=== PATIENT | male | born 1940 | race African-American/Black ===

== ENCOUNTER 2016-08-22 17:42 | Inpatient (IN) | payer MEDICARE ==
--- NOTE | ~2016-08-22 | TOC ---
Unit #: [id number] #: [id number] Patient: JUNIOR VILLARREAL [id number] [address] [address] [id number] I MR#: [id number] NAME: JUNIOR VILLARREAL ROOM: 335 Age: 76 Sex: M Admission Date: 08/22/2016 : 1940 Attending Physician: Damien Herrmann M.D. Primary Care Physician: No Primary Care Physician TRANSFER OF CARE SUMMARY WORKING DIAGNOSES 1. Severe bilateral lower extremity artery occlusion, right greater than left. Planning to have angiogram today. 2. Left lower extremity cellulitis, currently on intravenous antibiotic. Infectious disease is following. 3. Acute kidney injury, improving. Renal ultrasound is unremarkable. Likely prerenal in nature. Nephrology is following. 4. Type 2 diabetes, stable. Accu-Cheks have been between 143 to 204 on current management. 5. Atrial fibrillation. Holding warfarin at this time for ongoing workup. 6. Ischemic cardiomyopathy. Left ventricular ejection fraction is 10% to 15%. Cardiology following. 7. Prior cerebrovascular accident. No residual effects. 8. Essential hypertension. 9. Hyperlipidemia. PROCEDURES Patient will undergo an angiogram of the left foot today. Please refer to the full dictated procedure note for further details. CONSULTANTS 1. Dr. Kunz of cardiology. 2. Dr. Lee of vascular surgery. 3. Dr. Lieberman of infectious disease. 4. Dr. Rai of nephrology. DIAGNOSTIC STUDIES IMAGING: X-ray of foot, 08/22/16, impression - Normal left foot. RENE of the lower extremity, impression - Severe occlusive disease above the ankle on the left with an ankle-brachial index of 0.35 and a toe brachial index of 0.14. Moderately severe occlusive disease above the ankle on the right with an ankle-brachial index of 0.55 and a toe brachial index of 0.46. Chest x-ray on 08/22/16, impression - Stable cardiomegaly. No active disease. Renal ultrasound on 08/23/16, impression -Right renal cyst. Otherwise negative renal ultrasound. Images of the bladder are normal. LABS: Today's labs include BMP - Glucose 207, BUN 24, creatinine 1.5, sodium 134, potassium 4.5, chloride 103, CO2 25, calcium 8.5, magnesium 2. Unit #: [id number] #: [id number] Patient: JUNIOR VILLARREAL CBC - WBC of 6.2, RBC 3.95, hemoglobin 10, hematocrit 32.1, MCV 81.3, MCH 25.4, MCHC 31.3, RDW 14.9, platelets 185, MPV 8.9. CURRENT MICROBIOLOGY: Urine culture with no growth. No eosinophils present. Blood culture - No growth. HOSPITAL COURSE The patient is a pleasant 76-year-old male with past medical history of type 2 diabetes, coronary artery disease, CVA, atrial fibrillation, ischemic cardiomyopathy with left ventricular ejection fraction of 10% to 15% (has an AICD placed), essential hypertension. Was brought to the emergency department due to left lower extremity redness and pain. Patient stated, about 1 1/2 weeks prior to hospitalization, had developed pain and discoloration of his left leg and (1) the 5th toe of his left foot. Had increasing fatigue and on the day of admission had fallen and actually passed out. He was ultimately brought to the emergency department where, on exam, his left foot was discolored. He had no palpable dorsalis pedis on his left foot. The left toe looks to be gangrenous. ABIs were performed in the emergency department, which revealed severe occlusive disease of the left with an RENE of 0.35 and [id number] occlusive disease on the right with an RENE of 0.55. Labs also showed acute kidney injury. Patient was admitted for ischemic gangrenous foot due to arterial occlusive disease. Dr. Lee of vascular surgery was consulted. Dr. Rai of nephrology was consulted for the acute kidney injury. Dr. Kunz was consulted for ischemic cardiomyopathy. Patient was started empirically on antibiotic. The current plan is to undergo an angiogram per vascular surgery's recommendation and continue with IV antibiotic, and infectious disease has been consulted for IV antibiotic management. The rest of the hospitalization will be dictated by ongoing needs. NOTE: Please note that this dictation took 40 minutes to prepare. Dictated by... Melanie Collins PA-C for Judy Cardenas TD: 08/25/2016 11:31 JOB #: [id number] TRANSFER OF CARE SUMMARY Page 1 of 1 X X TRANSFER OF CARE SUMMARY
--- NOTE | ~2016-08-22 | CR126 ---
[facility] A Service of [facility] & [facility] RADIOLOGY TEXT RESULTS PATIENT: JUNIOR VILLARREAL LOCATION: [facility] : 41 UNIT #: [id number] AGE: [address]: Seun Perez DO SEX: M ORDER DR: [id number] [facility] [address] [place], [place] [address] [id number] E MR#: [id number] Acc #: [id number] NAME: JUNIOR VILLARREAL : 1940 SEX: M STUDY DATE/TIME: 08/22/2016 18:54 UNIT: [facility] ROOM: STUDY DESCRIPTION: CR Foot Complete Min 3 View Lt Attending Physician: Seun Perez D.O. Ordering Physician: Seun Perez D.O. Primary Care Physician: No Primary Care Physician MEDICAL IMAGING REPORT This report is preliminary unless electronic signature is present EXAM Left foot. HISTORY Pain, swelling and redness over the past 1-1/2 weeks. Foot injury 1-1/2 weeks ago. TECHNIQUE 3 views of the foot were obtained. FINDINGS The tarsal, metatarsal, and phalangeal elements are all anatomically normal in position and alignment. There are no articular defects. No fractures or radiopaque foreign bodies in the soft tissues are apparent. IMPRESSION Normal left foot. Dictated by... Kalen Lin M.D. THIS IS AN ELECTRONICALLY VERIFIED REPORT Kalen Lin M.D. at 08/22/2016 10:18 PM ANTONIETA/sixto TD: 08/22/2016 20:14 JOB #: [id number] MEDICAL IMAGING REPORT Page 1 of 1 COPY
--- NOTE | ~2016-08-22 | US146 ---
[facility] A Service of [facility] RADIOLOGY TEXT RESULTS PATIENT: JUNIOR VILLARREAL LOCATION: C3A 335-01 : 41 UNIT #: [id number] AGE: [address]: Damien Herrmann MD SEX: M ORDER DR: [id number] [facility] [address] [place], [place] [address] [id number] I MR#: [id number] Acc #: [id number] NAME: JUNIOR VILLARREAL : 1940 SEX: M STUDY DATE/TIME: 08/26/2016 11:50 UNIT: C3A U ROOM: [facility] STUDY DESCRIPTION: US Vein Map Hemodial Access Attending Physician: Damien Herrmann M.D. Ordering Physician: Tomas Chatman M.D. Primary Care Physician: No Primary Care Physician MEDICAL IMAGING REPORT This report is preliminary unless electronic signature is present DATE OF EXAMINATION 08/26/2016 EXAM Bilateral lower extremity vein mapping. CLINICAL HISTORY Ischemic toe, preoperative for bypass. FINDINGS The right great saphenous vein has the following size measurements in millimeters: Upper proximal 5.0, mid 2.3, distal 1.7, at knee 1.0, lower proximal 1.9, mid 2.4, distal 1.4. The small saphenous vein on the right has the following size measurements in millimeters: Proximal 1.7, mid 1.1, distal 1.0. The left great saphenous vein has the following size measurements in millimeters: Upper proximal 2.9, mid 2.4, distal 2.3, at knee 2.4, lower proximal 2.2, mid 1.9, distal 3.0. The small saphenous vein has the following size measurements in millimeters: Proximal 1.0, mid 0.9, distal 0.9. There is no thrombus seen within any of these veins. IMPRESSION 1. The left great saphenous vein appears to be of adequate conduit for possible bypass from the upper proximal portions to the lower distal portion. 2. The right great saphenous vein appears to be a marginal candidate with 2 locations, at the upper distal and lower distal, which are STS. [facility] A Service of [facility] RADIOLOGY TEXT RESULTS PATIENT: JUNIOR VILLARREAL LOCATION: A 335-01 : 42 UNIT #: [id number] AGE: [address]: Damien Herrmann MD SEX: M ORDER DR: less than 2 mm. Dictated by... Shemar Mera M.D. THIS IS AN ELECTRONICALLY VERIFIED REPORT Shemar Mera M.D. at 08/29/2016 2:57 PM CYNTHIA/juan m TD: 08/27/2016 10:11 JOB #: [id number] MEDICAL IMAGING REPORT Page 1 of 1 COPY
--- NOTE | ~2016-08-22 | CO ---
Unit #: [id number] #: [id number] Patient: JUNIOR VILLARREAL [id number] [address] [address] [id number] I MR#: [id number] NAME: JUNIOR VILLARREAL ROOM: 335 Age: 76 Sex: M Admission Date: 08/22/2016 : 1940 Attending Physician: Damien Herrmann M.D. Primary Care Physician: No Primary Care Physician Consultation Date: 08/23/2016 CONSULTATION REPORT REASON FOR CONSULT Renal insufficiency. Thank you very much for having me see this patient in consultation. HISTORY OF PRESENT ILLNESS Mr. Junior Villarreal is a 76-year-old, -Honduran male who presented to the hospital with 1-2 weeks of pain in his left lower leg and foot. He was noted to have probable ischemic toes. He was started on vanc. and Zosyn and was admitted. He was noted upon presentation to have BUN and creatinine of 60 and 2.5 last night and repeat of 52 and 2.1 today. Because of this, I was asked to see the patient. Patient was noted in May of 2015 to have a creatinine range between 0.8 and 1.1. He denies taking any nonsteroidals for pain and denies ever having any kidney problems. He states that mainly just increased swelling and pain in his left foot. He denies any fevers or chills, any cough, any hemoptysis, no chest pain, no shortness of breath, and no urinary symptoms. He did have a bladder scan and postvoid residual was only 65 upon admission last night. PAST MEDICAL HISTORY History of atherosclerotic coronary artery disease, status post stent; history of cardiomyopathy with decreased EF around 30%; history of hyperlipidemia; he is status post AICD; history of hypertension; history of atrial fib.; history of CVA in the past x2 he states with only residual being a little numbness in his right hand; and history of non-insulin dependent diabetes mellitus. ALLERGIES No known drug allergies. SOCIAL HISTORY Previous smoker, previous alcohol abuser; none in over a year for both. MEDICATIONS His medicines at home included: 1. Aspirin. 2. Coreg. 3. Lasix 40 mg twice a day. 4. Glucotrol. 5. Januvia. 6. Prinivil 20 mg b.i.d. 7. Glucophage. 8. Potassium. Unit #: [id number] #: [id number] Patient: JUNIOR VILLARREAL 9. Aldactone. 10. Coumadin. Here, he was started on: 11. Zosyn. 12. Vanc. 13. Florastor. 14. Coreg. 15. Aspirin. 16. IV fluids. FAMILY HISTORY His family history is noncontributory. REVIEW OF SYSTEMS As mentioned in the HPI, denies any other skin rash, except for the redness in his left foot. Again, no other review of systems were positive. PHYSICAL EXAMINATION GENERAL: He is alert. VITAL SIGNS: His temperature is 98.6, pulse 72-103, and blood pressure 105-148/50-70s. HEENT: Normocephalic and atraumatic. Pupils are equal, round, and reactive to light. Extraocular muscles are intact. Hearing appears to be normal. Mouth: Poor dentition, but no erythema. NECK: Supple. No adenopathy. CARDIAC: He appears to have an irregular rhythm without a rub. No S3 or S4. LUNGS: Clear bilaterally. No wheezes, rhonchi, or rales. ABDOMEN: Bowel sounds positive. Nontender and soft. No masses felt. No hepato or organomegaly noted. EXTREMITIES: He has very trace swelling in his left lower extremity, foot, otherwise, and he has some ischemia, darkened toes, on his left foot. Otherwise negative. NEURO: Appears to be intact, motor and sensory grossly. : Deferred. DIAGNOSTIC STUDIES LABORATORY: Data showed a UA: Specific gravity 1.02; 1+ protein, although no proteinuria in 2016; 0-2 RBCs; and 0-2 WBCs. This morning, his sodium is 136, his potassium is down to 4.7 from 5.8 (he did received Kayexalate x1), bicarb is 22, BUN of 53, creatinine 2.1 today, glucose is 147, calcium is 9.1, and albumin is 4.1. CPK is 119. Hemoglobin is 10.5, white count 8300, and platelets are 95,000. ASSESSMENT AND PLAN 1. Acute kidney injury. This gentleman has increased BUN and creatinine probably related to his medications (1) his Aldactone, Prinivil, and Lasix with possible volume depletion causing his acute renal insufficiency. His urine does show some mile proteinuria and we will check a serum protein immunofixation, although no hematuria. Will continue mild hydration, although certainly will watch for overload. Renal ultrasound has been ordered. Will check a random urine protein/creatinine ratio, urine eosinophils, as well as a urine sodium. Will check full electrolytes in the a.m. Certainly, if things worsen or do note continue to improve, will have to consider further workup and treatment. For now, I agree with holding his Aldactone, Lasix, and Prinivil and will re-add them on as clinically indicated. Unit #: [id number] #: [id number] Patient: JUNIOR VILLARREAL 2. Hyperkalemia. Improved secondary to, again, Aldactone, acute renal failure, acidosis and Prinivil. Again, recheck in a.m. 3. Ischemic left foot. Would hold off on arteriogram until renal function improves unless it is an emergency. He is also on some vancomycin for his cellulitis as well as this and, when clinically felt able to change to a nonnephrotoxic drug, I would appreciate it. 4. History of heart disease and decreased EF, status post AICD, history of atrial fib. 5. Non-insulin dependent diabetes mellitus. Certainly agree with stopping his Glucophage for now until his renal function improves. He had a lactic acid level of 1.6 so I doubt if he has any significant lactic acidosis from renal insufficiency with the Glucophage. Dictated by.Samy Rai M.D. SHELDON/uday TD: 08/23/2016 10:22 JOB #: [id number] CONSULTATION REPORT Page 1 of 1 X Justin Rai MD X CONSULTATION REPORT
--- NOTE | ~2016-08-22 | CO ---
Unit #: [id number] #: [id number] Patient: JUNIOR VILLARREAL [id number] [address] [address] [id number] I MR#: [id number] NAME: JUNIOR VILLARREAL ROOM: 335 Age: 76 Sex: M Admission Date: 08/22/2016 : 1940 Attending Physician: Damien Herrmann M.D. Primary Care Physician: No Primary Care Physician Consultation Date: 08/24/2016 CONSULTATION REPORT REASON FOR CONSULTATION Antibiotic management in a patient with left foot ischemia. HISTORY OF PRESENT ILLNESS This is a 76-year-old male who has a history of diabetes and ischemic cardiomyopathy with an ejection fraction of 10% to 15%. The patient reports that he was at home and about a week and a half ago he suffered some trauma to his left foot, mainly involving his fifth toe when he stubbed it. The patient reported that it became increasingly painful, swollen. There was some drainage noted and he began to have some discoloration in his toe with associated pain which brought him to the emergency room. The patient reports he did not take any antibiotics at home. He reports that, overall, he feels like his swelling has greatly improved from his foot and he is no longer having any drainage. Vascular surgery has also been consulted on this patient and they are currently awaiting an angiogram on Sunday. The patient has been placed on vancomycin and Zosyn. ID was asked to evaluate for further antibiotic management. PAST MEDICAL HISTORY Includes: 1. Ischemic cardiomyopathy with an ejection fraction of 10% to 15%, status post AICD placement. 2. Hypertension. 3. Hyperlipidemia. 4. Diabetes. 5. CVA x2. ALLERGIES No known allergies. MEDICATIONS The patient is currently on vancomycin and Zosyn. For other medications, please refer to patient's MAR. SOCIAL HISTORY The patient lives with others. He has positive tobacco abuse but reports none recently. He denies any alcohol currently. He denies any current drug use. REVIEW OF SYSTEMS The patient denies to me any fevers, chills, nausea, vomiting, diarrhea. He denies to me any chest pain or shortness of breath. He does report some pain in his left foot. However, it is improving. He denies any Unit #: [id number] #: [id number] Patient: JUNIOR VILLARREAL current drainage. PHYSICAL EXAMINATION VITAL SIGNS: Temperature is 97.6, pulse is 73, blood pressure is 135/62 and respiratory rate is 20. GENERAL: This is a no apparent distress male sitting in the bed comfortably. HEENT/NECK: His pupils are equal. His neck is supple. CARDIOVASCULAR: S1, S2. Regular rate and rhythm. PULMONARY: Clear to auscultation bilaterally with no wheezes or rhonchi noted. ABDOMEN: Positive bowel sounds. Soft and nontender. EXTREMITIES: Left lower extremity reveals fifth toe with some distal necrosis. His foot is cool to touch. There is some wrinkling of the skin. There is no warmth noted. It is cool to touch. There is no obvious drainage but appears to have some old drainage noted around both fourth and fifth toe. The patient does have malodorous drainage present. DIAGNOSTIC STUDIES LABORATORY: BUN 30, creatinine 1.6, with a creatinine of 2.5 on admission. Sodium 136, potassium 4.2, chloride 104, CO2 25, bilirubin 1.0, AST 44, ALT 23, CK 117, lactic acid 1.6, INR 1.2. White blood cell count 7.4 which is improved from 10 on admission. Hemoglobin 9.9, hematocrit 31.7, platelets 192. Urinalysis is unremarkable. MICROBIOLOGY: Urine for eosinophils is pending. Urine culture is negative. Blood cultures are negative. IMAGING: Bilateral renal ultrasound shows right renal cyst, otherwise negative renal ultrasound. Chest x-ray - no active disease. Foot film shows normal left foot. IMPRESSION This is a 76-year-old diabetic male with ischemic cardiomyopathy status post trauma to his left fifth toe approximately one to two weeks ago. The patient had increasing pain, swelling and malodorous drainage. The patient did not have any fever but now is noted to have a cool foot and ischemia. The patient's ABIs have been done by the vascular surgery team who plan to take him for an angiogram on Sunday. The patient, at this time, does not have any severe obvious cellulitis but can't exclude fifth toe infection or osteomyelitis. At this time, would recommend to continue vancomycin and Zosyn but will need to follow patient's creatinine very closely. The patient does not have any evidence of bacteremia and further workup may be warranted pending vascular surgery's results from their tests on Sunday. Will also check a CRP and sed rate with the next blood draw. Patient does not appear septic or toxic at this time. Thank you for allowing us to participate in the care of this patient and further recommendations to follow pending patient's clinical course. This case will be discussed with Dr. Ismael Lieberman who will evaluate this Unit #: [id number] #: [id number] Patient: JUNIOR VILLARREAL patient as well today. Dictated by... Aileen Rabago, Lon.P.R.N. for Ismael Lieberman M.D. MATTHEW/yazan TD: 08/24/2016 09:24 JOB #: [id number] CONSULTATION REPORT Page 1 of 1 X X CONSULTATION REPORT
--- NOTE | ~2016-08-22 | A ---
[facility] Nutrition Therapy DATE: 08/23/16 Patient: JUNIOR VILLARREAL Physician: BONITA Address: [address] [place] [address] Room/Bed: [address] [place] [address], Zip: [place] [address] Admit Date: 08/22/16 Date of : 41 Height: 6 0 Weight: 230 104.32 NUTRITIONAL ASSESSMENT: REASON: ONE NUTRITION RISK PT RE: PRESSURE ULCER/NON-HEALING WOUND PT IS 76 Y.O. MALE ADMITTED FOR ISCHEMIC, LEFT LEG, KLEBER PMH: CVA X 2, CHF, HTN, FL, CAD, DM, A-FIB, HLD Anthropometrics: 6'0" (PER RD OBSERVATION), WT: 230# (PER PT) (105 KG), BMI: 31.2 Labs: GLU: 147, BUN: 52, CREAT: 2.1, GFR: 34.6 Meds: NACL, NOVOLOG, ZOFRAN I/O & Bowel function: 859/200 Skin Integrity: (L) FOOT WOUND ((L) SMALL TOE WOUND?) EDEMA: (L) FOOT TRACE EDEMA Estimated Nutrition Needs: INCREASED PROTEIN NEEDS 2' SKIN BREAKDOWN Assessment: CHART REVIEWED AND EVENTS NOTED. PT SEEN FOR NUTRITION RISK PT RE: PRESSURE ULCER/NON-HEALING WOUND. PT REPORTS GOOD PO INTAKE AND APPETITE, NO C/O N/V/D. PT DENIES ANY WEIGHT LOSS AND GAIN. RD PROVIDED WRITTEN AND VERBAL CC+HH DIET EDUCATION. PT DEMONSTRATED UNDERSTANDING OF THE TOPIC. PT REPORTED NO DIET QUESTIONS AT THIS TIME. RD TO REMAIN AVAILABLE. Dx: ALTERED NUTRIENT UTILIZATION R/T PMH AEB NEED FOR THERAPEUTIC DIET ORDER. -INCREASED PROTEIN NEEDS R/T DX AEB SKIN BREAKDOWN NOTED. Intervention: 1. CC+HH DIET 2. WRITTEN/VERBAL CC+HH DIET EDUCATION Monitoring, Evaluation and Goals: 1. ORAL INTAKE; CONSUME >50% OF MEALS W/NO C/O N/V/D 2. WEIGHTS; PROMOTE GRADUAL WEIGHT LOSS 3. LABS; WNL 4. SKIN; PROMOTE SKIN HEALING MONITOR: -PO INTAKE/APPETITE -WEIGHTS -EDUCATION NEEDS [facility] Nutrition Therapy DATE: 08/23/16 Patient: JUNIOR VILLARREAL Physician: BONITA Address: [address] [place] [address] Room/Bed: [address] [place] [address], Zip: [place] [address] Admit Date: 08/22/16 Date of : 41 Height: 6 0 Weight: 230 104.32 Recommendations: 1. ENCOURAGE COMPLIANCE OF CURRENT DIET ORDER ABOVE 2. ADD MVI W/MINERAL DAILY + 100-200 MG VITAMIN C DAILY TO PROMOTE SKIN HEALING RD WILL F/U PER PROTOCOL PT IS MILDLY COMPROMISED Respectfully, TAMELA BAUTISTA MS, RD, LD Food and Nutritional Services [facility] cc: client file
--- NOTE | ~2016-08-22 | EKG ---
PATIENT: JUNIOR VILLARREAL UNIT #: [id number] Ventricular Rate: 38 BPM Atrial Rate: 250 BPM QRS Duration: 162 ms Q-T Interval: 472 ms QTC Calculation(Bezet): 375 ms Calculated R Murray: -86 degrees Calculated T Murray: -43 degrees Diagnosis Line: Electronic ventricular pacemaker Leftward axis Diagnosis Line: Atrial fibrillation Diagnosis Line: Diagnosis Line: Confirmed by HOSSEIN ZHONG MD ([id number]) on 08/24/2016 Diagnosis Line: 10:31:58 AM INTERPRETING MD: TREVIN SÁNCHEZ
--- NOTE | ~2016-08-22 | CO ---
Unit #: [id number] #: [id number] Patient: JUNIOR VILLARREAL [id number] [address] [address] [id number] I MR#: [id number] NAME: JUNIOR VILLARREAL ROOM: [facility] Age: 76 Sex: M Admission Date: 08/22/2016 : 1940 Attending Physician: Damein Herrmann M.D. Primary Care Physician: No Primary Care Physician Consultation Date: 08/23/2016 CONSULTATION REPORT REASON FOR CONSULT Left ischemic foot pain and swelling. HISTORY OF PRESENT ILLNESS Mr. Villarreal is a 76-year-old -Citizen Of [place] male who is complaining of left leg and foot pain with swelling for one and a half weeks. He has been experiencing increasing fatigue and leg pain and fell, which ultimately brought him to the emergency room. His left toe he apparently stubbed about a week ago which has increasingly become malodorous with purulent drainage. He started to have discoloration and increased pain of his left foot which ultimately brought him to the emergency room. PAST MEDICAL HISTORY 1. Ischemic cardiomyopathy with his last ejection fraction 10 to 15% last year on echocardiogram. He has a history of an AICD placement. In 2011, the patient was noted to have an atrial appendage clot. He has been anticoagulated. He has a history of atrial fibrillation and flutter. 2. Hypertension. 3. Hyperlipidemia. 4. Adult onset of diabetes. 5. Cerebrovascular accident x2. SOCIAL HISTORY He lives with his and extended family. He has a 100-pack year smoking history but has recently stopped smoking. He denies that he does not drink alcohol. However, he states that he had a bout with alcoholism in the past. He denies illicit drug use. FAMILY HISTORY He has a family history of coronary artery disease. He denies stroke or any other medical problems. ALLERGIES He has no known drug allergies. CURRENT HOME MEDICATIONS 1. Aspirin 81 mg daily. 2. Coreg 3.125 mg b.i.d. 3. Lasix 40 mg b.i.d. 4. Glucotrol 10 mg b.i.d. 5. Januvia 50 mg daily. 6. Prinivil 20 mg b.i.d. 7. Glucophage 850 mg t.i.d. Unit #: [id number] #: [id number] Patient: JUNIOR VILLARREAL 8. Potassium 20 mEq daily. 9. Aldactone 12.5 mg daily. 10. Coumadin 7.5 mg daily REVIEW OF SYSTEMS CONSTITUTIONAL: No fevers, chills or sweats. EYES: No recent visual problems. EARS, NOSE, MOUTH, THROAT: No ear pain, nasal congestion, sore throat. RESPIRATORY: No shortness of breath or cough. CARDIOVASCULAR: The patient denies chest pain, palpitations, syncope. GASTROINTESTINAL: The patient denies nausea, vomiting, diarrhea. GENITOURINARY: The patient denies hematuria. HEMATOLOGIC/LYMPHATIC: Negative for bruising, swollen lymph glands. ENDOCRINE: No excessive thirst, excessive hunger. MUSCULOSKELETAL: The patient denies back pain, neck pain, joint pain, muscle pain, decreased range of motion. INTEGUMENTARY: The patient verbalizes a nonhealing left fifth toe wound that is purulent in discharge and malodorous. Otherwise, his right lower extremity is negative for open sores or wounds. NEUROLOGIC: Alert and oriented x3. PSYCHIATRIC: No anxiety, depression or suicidal thoughts or ideations. PHYSICAL EXAMINATION GENERAL APPEARANCE: This is a well-developed, well-nourished, in no acute distress, answers all questions appropriately. VITAL SIGNS: Temperature 98.2. Pulse 68. Respirations 16. O2 sat 97% on room air. Blood pressure 116/70. HEENT: Normocephalic. Pupils equal, round and reactive to light. NECK: Supple, nontender without lymphadenopathy, masses or thyromegaly. No carotid bruits noted. CARDIAC: Regular rate and rhythm. No murmurs. No peripheral edema, cyanosis or pallor. LUNGS: Clear to auscultation bilaterally. ABDOMEN: Positive bowel sounds. Soft, nontender. No distension. No masses or hepatomegaly. MUSCULOSKELETAL: The patient moves all extremities, full range of motion. No muscular development upper extremities. No deformity noted. No edema. Lower extremities: No deformity noted. No edema. However, left fifth toe wound with purulent drainage and malodorous between fourth and fifth toes. Vascular palpable radial pulses bilaterally. Femoral pulses on the right is a 1+ femoral. On the left, is a very weak palpable femoral pulse. On the left, popliteal pulse is monophasic in nature. Right popliteal is nonpalpable. Left dorsalis pedis and posterior tibial pulse signals are nonpalpable and no signal obtained via Doppler. On the right, the dorsalis pedis and posterior tibialis pulse signals are present. INTEGUMENTARY: Warm and dry. There is an open sore between the fourth and fifth digit of his left foot. There is no hemosiderin disposition. NEUROLOGIC: Cranial nerves II-XII are grossly intact. Normal strength and sensation bilaterally. PSYCHIATRIC: Oriented to person, place and time. The patient demonstrates good judgment and reason. DIAGNOSTIC STUDIES LABORATORY: Glucose 147, BUN 52, creatinine 2.1, EGFR 34.6, sodium 136, potassium 4.7, chloride 106, CO2 22. PT 13.3, INR 1.3, PTT 28.4. WBC count 8.3, hemoglobin 10.5, hematocrit 33.7, platelets 195. IMAGING: ABIs performed show severe occlusive disease on the left with an Unit #: [id number] #: [id number] Patient: JUNIOR VILLARREAL RENE of 0.35 and moderate to ischemic occlusive disease on the right with an RENE of 0.55. On the right, toe pressure is 0.46 and, on the left, the toe pressure is 0.14. ASSESSMENT Left lower extremity ischemia with peripheral arterial disease. PLAN There are ABIs on the chart which are indicative of severe ischemia to his bilateral lower extremities. On the left, there is an indiction that he would not be able to heal the toe wound that is between his fourth and fifth toe due to a very low toe pressure of 0.14. It is recommended that he is to have an arteriogram of his bilateral lower extremities with CO2 on Sunday with Dr. Mera. We will not use any dye in this case due to his acute kidney injury. For this reason, we have chose to do the CO2. We will also pre-hydrate him prior to that procedure just for added benefit of his acute kidney injury. This plan was discussed and review with Dr. Mera in detail and he agrees with the plan. Should you have any questions, comments or concerns, please feel free to give our office a call at [phone]. Thank you for allowing us to participate in this patient's care. Dictated by... Carey Bolden APRN for Shemar Mera M.D. Prisca TD: 08/24/2016 06:25 JOB #: [id number] CONSULTATION REPORT Page 1 of 1 X X CONSULTATION REPORT
--- NOTE | ~2016-08-22 | CO ---
Unit #: [id number] #: [id number] Patient: JUNIOR VILLARREAL [id number] [address] [address] [id number] I MR#: [id number] NAME: JUNIOR VILLARREAL ROOM: 335 Age: 76 Sex: M Admission Date: 08/22/2016 : 1940 Attending Physician: Damien Herrmann M.D. Primary Care Physician: No Primary Care Physician Consultation Date: 08/23/2016 CONSULTATION REPORT REASON FOR CONSULTATION Cardiovascular management and congestive heart failure. HISTORY OF PRESENT ILLNESS This is a 76-year-old -[place] male well known to Dr. Kunz with a past medical history of chronic systolic congestive heart failure, recurrent atrial flutter and coronary artery disease. The patient had a cardiac catheterization March 2013, which revealed an occluded diagonal. There was a total chronic occlusion of the right coronary artery. Mid left circumflex with 60% to 70%. Additional past medical history includes hypertension, hyperlipidemia, diabetes mellitus type 2, alcohol and reformed tobacco abuse. The patient was previously admitted to [facility] in May 2015, for acute on chronic systolic congestive heart failure. 2D echocardiogram at that time revealed ejection fraction 10% to 15% with mild to moderate mitral regurgitation and mild pulmonary hypertension. He presented to the hospital on 08/22/2016 with complaints of a fall. The patient states that he lost his balance and fell yesterday. He denies dizziness prior to the fall. There are no reports of palpitations, chest pain or shortness of breath. He came to the emergency department for treatment of the fall. He also has a left foot wound but has been ongoing prior to the fall yesterday. He denies a fever or chills. There are no reports of shortness of breath, PND, orthopnea or lower extremity edema. He states that he has been compliant with medications. He has been told to follow fluid restriction and nods his head that he does follow these instructions. He is somewhat sleepy during the exam and interview but is able to give a history with stimulation. He was admitted to the emergency department for a fall and left foot ischemia. The wound nurse was consulted. He was started on Zosyn and vancomycin as well as normal saline. Initial labs revealed an elevated potassium of 5.8. Creatinine was 2.5. The last time the patient was admitted his creatinine was around 0.9 to 1.1. He was given Kayexalate and nephrology was consulted. X-ray of the left foot revealed no acute findings. EKG revealed atrial flutter with a left axis deviation and poor R waves. Cardiology was consulted for cardiovascular management. PAST MEDICAL HISTORY 1. Previous admission to [facility] May 12 through May 18, 2015, for acute on chronic systolic congestive heart failure. 2. Ischemic cardiomyopathy. Biventricular AICD implanted by Dr. Vásquez in 2015. Unit #: [id number] #: [id number] Patient: JUNIOR VILLARREAL 3. 2D echocardiogram 05/13/15 revealed an ejection fraction of 10% to 15%. Large anterior apical akinesis. LV moderately dilated. RV small to moderately dilated. Mild to moderate mitral regurgitation. Mild tricuspid regurgitation. Right ventricular systolic pressure 30 to 40 mmHg. 4. Repeat 2D echocardiogram 08/10/2015 revealed an ejection fraction of 15% to 20% with mildly enlarged right atrium, mildly dilated right ventricle, mild aortic regurgitation, mild to moderate mitral regurgitation and tricuspid regurgitation. RVSP normal. No pericardial effusion. 5. Coronary artery disease, status post cardiac catheterization March 2013, revealed left main 30%, occluded diagonal. Total chronic occlusion of the right coronary artery. The left circumflex 60% to 70%. 6. Possible left atrial appendage thrombus in 2011. 7. Hypertension. 8. Hyperlipidemia. 9. Diabetes mellitus type 2. 10. Recurrent atrial flutter. 11. History of alcohol abuse. 12. Reformed tobacco abuse. PAST SURGICAL HISTORY 1. Cardiac catheterization. 2. Right ventricular AICD in 2015. HOME MEDICATIONS 1. Aspirin 81 mg p.o. daily. 2. Coreg 3.125 mg p.o. b.i.d. 3. Furosemide 40 mg p.o. b.i.d. 4. Glipizide 10 mg p.o. b.i.d. 5. Januvia 50 mg p.o. daily. 6. Prinivil 20 mg p.o. b.i.d. 7. Glucophage 850 mg p.o. three times daily. 8. Potassium chloride 20 mEq p.o. daily. 9. Spironolactone 12.5 mg p.o. daily. 10. Coumadin 7.5 mg p.o. daily. ALLERGIES No known drug allergies. SOCIAL HISTORY The patient is a reformed smoker. He has a history of alcohol abuse but none currently. He denies illicit drug use. FAMILY HISTORY Unchanged from previous consultation. REVIEW OF SYSTEMS Ten point review of systems negative except for details noted above in HPI. PHYSICAL EXAMINATION VITAL SIGNS: Temperature 98.6, pulse 72, blood pressure 105/57. CONSTITUTIONAL: This is a 76-year-old -[place] male in no acute distress. SKIN: Warm and dry. NECK: Supple. No jugular vein distention. No hepatojugular reflux. Unit #: [id number] #: [id number] Patient: JUNIOR VILLARREAL Normal carotid upstrokes. No carotid bruits auscultated. HEART: S1 and S2. Irregularly irregular. No murmurs, rubs or gallops. LUNGS: Bilateral breath sounds have good air entry throughout all lung biggs. Respirations even and unlabored. No rubs, rhonchi or wheezes. ABDOMEN: Soft, nontender, nondistended. Positive bowel sounds auscultated x4 quadrants. No ascites noted. EXTREMITIES: Bilateral extremities have no pretibial pitting edema. DP and PT pulses 2+. Capillary refill greater than three seconds on the left. Ischemic toes noted on the left. DIAGNOSTIC STUDIES LABORATORY: White blood cell count 8.3, hemoglobin 10.5, hematocrit 33.7, platelets 195, sodium 136, potassium 4.7, chloride 106, CO2 22, BUN 52, creatinine 2.1. Creatinine in 2016 0.9 to 1.1. Glucose 147, AST 17, ALT 17, alkaline phos. 54. Troponin 0.09, 0.09 and 0.10. Hemoglobin A1c 7.5 in September 2015. Lactic acid 1.6, INR 1.3. Urine culture pending. Urinalysis - positive for 1+ protein. IMAGING: Chest x-ray reveals stable cardiomegaly. CARDIOVASCULAR: EKG reveals atrial fibrillation with ventricular paced beats. QTC 375 msec. IMPRESSION 1. Left foot ischemia. 2. Acute renal failure. 3. Hyperkalemia. 4. Ischemic cardiomyopathy with an ejection fraction 10% to 15%. 5. Mild aortic regurgitation. 6. Mild to moderate mitral and tricuspid regurgitation. 7. Chronic systolic congestive heart failure, compensated. History of biventricular automatic implantable cardioverter defibrillator in 2016. 8. Coronary artery disease, per cardiac catheterization March 2013 with total chronic occlusion of the right coronary artery. Medical management. 9. Hypertension. 10. Hyperlipidemia. 11. Diabetes mellitus type 2. 12. History of alcohol abuse. 13. History of reformed tobacco abuse. 14. Status post fall with unsteady gait. PLAN 1. The patient presented to the hospital after sustaining a fall due to unsteady gait. He also had complaints of a left foot injury. 2. He was admitted for left foot ischemia and acute renal failure with hyperkalemia. 3. Cardiology was consulted for cardiovascular management. There is no evidence of congestive heart failure on exam or complaints of chest pain. 4. The patient will be continued on current medications. Unit #: [id number] #: [id number] Patient: JUNIOR VILLARREAL 5. Hemoglobin A1c and fasting lipid profile will be obtained. 6. Daily PT/INR will be ordered as the patient was on Coumadin at home. His INR is subtherapeutic and he will be started on renal dosing of Lovenox. 7. Will consult vascular surgery for left ischemic foot. 8. No BATSHEVA inhibitor or ARB will be prescribed for cardiomyopathy due to acute on chronic kidney disease. Dictated by... Alexandria Knutson APRN for Judy Lugo TD: 08/24/2016 07:23 JOB #: [id number] CONSULTATION REPORT Page 1 of 1 X X CONSULTATION REPORT
--- NOTE | ~2016-08-22 | CR72 ---
[facility] A Service of [facility] RADIOLOGY TEXT RESULTS PATIENT: JUNIOR VILLARREAL LOCATION: [facility] 335-01 : 41 UNIT #: [id number] AGE: [address]: Stephenie Smith MD SEX: M ORDER DR: [id number] [facility] [address] [place], [place] [address] [id number] I MR#: [id number] Acc #: [id number] NAME: JUNIOR VILLARREAL : 1940 SEX: M STUDY DATE/TIME: 08/22/2016 22:31 UNIT: [facility] ROOM: 22471 STUDY DESCRIPTION: CR Chest Single View Portable Attending Physician: Stephenie Smith M.D. Ordering Physician: Stephenie Smith M.D. Primary Care Physician: No Primary Care Physician MEDICAL IMAGING REPORT This report is preliminary unless electronic signature is present EXAM Portable chest. DATE OF EXAM 08/22/2016, at 22:31. INDICATIONS Left foot pain and swelling for 1-1/2 weeks. Ischemic leg. History of hypertension. FINDINGS AP portable chest is compared with 11/29/2015. Cardiomegaly stable. Multipolar pacer is in place. The lungs are clear. There is no pneumothorax. IMPRESSION Stable cardiomegaly. No active disease. Dictated by... Kalen Young Jr., M.D. THIS IS AN ELECTRONICALLY VERIFIED REPORT Kalen Young Jr., M.D. at 08/23/2016 5:54 AM CHERY/sixto TD: 08/22/2016 23:00 JOB #: [id number] MEDICAL IMAGING REPORT Page 1 of 1 COPY
--- NOTE | ~2016-08-22 | US77 ---
[facility] A Service of [facility] & [facility] RADIOLOGY TEXT RESULTS PATIENT: JUNIOR VILLARREAL LOCATION: A 335- : 41 UNIT #: [id number] AGE: [address]: Damien Herrmann MD SEX: M ORDER DR: [id number] [facility] [address] [facility]. [place], [place] [address] [id number] I MR#: [id number] Acc #: [id number] NAME: JUNIOR VILLARREAL : 1940 SEX: M STUDY DATE/TIME: 08/23/2016 7:43 [facility] STUDY DESCRIPTION: US Kidney Bilateral Complete Attending Physician: Damien Herrmann M.D. Ordering Physician: Stephenie Smith M.D. Primary Care Physician: Primary Care Physician No MEDICAL IMAGING REPORT This report is preliminary unless electronic signature is present EXAM Bilateral renal ultrasound 08/23/2016 HISTORY Abnormal renal function tests. Elevated BUN of 60, elevated creatinine of 2.5. Abnormally low GFR of 28.1 on 08/23/2016. Renal obstruction. Diabetes and hypertension. FINDINGS The right kidney measures 9.4 cm while the left kidney measures 10.9 cm in longitudinal dimensions. There is no evidence of hydronephrosis or nephrolithiasis. There is a 1.6 cm cyst on the right kidney. No solid mass lesions are identified. There is normal renal cortical echogenicity. Images of the bladder are normal. IMPRESSION 1. Right renal cyst. Otherwise negative renal ultrasound. 2. Images of the bladder are normal. Dictated by... Eliel Davalos M.D. THIS IS AN ELECTRONICALLY VERIFIED REPORT Eliel Davalos M.D. at 08/29/2016 8:07 AM TIGIST/bari TD: 08/23/2016 09:03 JOB #: [id number] MEDICAL IMAGING REPORT Page 1 of 1 COPY
--- NOTE | ~2016-08-22 | OR ---
Unit #: [id number] #: [id number] Patient: JUNIOR VILLARREAL [id number] [address] [place], [place] [address] [id number] MR#: [id number] NAME: JUNIOR VILLARREAL ROOM: [facility] Date of Procedure: 08/25/2016 Admission Date: 08/22/2016 Surgeon: Shemar Mera M.D. : 1940 Attending Physician: Damien Herrmann M.D. Primary Care Physician: Primary Care Physician No OPERATIVE REPORT PROCEDURES PERFORMED 1. Ultrasound-guided access of right common femoral artery. 2. Moderate sedation. 3. Aortogram with left lower extremity angiogram first order. INDICATIONS FOR PROCEDURE This is a 76-year-old gentleman, who was admitted with some left foot pain, and concern for some scabbed ulcerations over his left fifth toe. He underwent ankle-brachial indices testing, which demonstrated that his right RENE was 0.55, his left RENE was 0.35, with the digital pressure of 20, toe index 0.14. As a result, I had discussed with the patient about doing a left lower extremity angiogram with possible intervention to access his vasculature, and there was no significant stenosis or occlusion, to try to intervene with a balloon or stent to maximize arterial inflow, so as to promote wound healing. I talked to the patient about the risks and benefits of the procedure. The risks include, but not limited to, contrast-induced nephropathy, injury to the blood vessels, access site bleeding, and need for further procedures. The benefit of the procedure would be to evaluate his blood flow, and to see if we can improve it. He expressed understanding, and elected to proceed. PREOPERATIVE DIAGNOSIS Atherosclerosis with ulceration. POSTOPERATIVE DIAGNOSIS Atherosclerosis with ulceration. DESCRIPTION OF PROCEDURE Pre-sedation history and examination revealed ASA physical status of 3; fasting duration of at least 6 hours; family history is negative for any adverse anesthetic or sedative reactions; normal dentition and neck mobility; no contraindication to sedation. The risks, benefits, and alternatives were discussed with the patient. He desired to proceed. With blood pressure, heart rate, and oxygen saturation monitors, constant nursing observation and direct attending supervision, the patient received Versed 1 mg IV, a total of fentanyl 50 mcg IV, given appropriate level of sedation. Total sedation time and [id number] time was 35 minutes. The patient was subsequently observed with serial examinations until return of pre-sedation mental status. The patient remained hemodynamically stable with normal oxygen saturations and vital signs, and no complications during procedure or recovery. Unit #: [id number] #: [id number] Patient: JUNIOR VILLARREAL A time-out procedure was performed. Using the ultrasound, I identified the femoral bifurcation. Using fluoroscopy, I identified the lower third of the femoral head and was marked on the skin. I then injected 1% lidocaine into the skin, and using ultrasound guidance, I accessed the right common femoral artery. I used a 21-gauge micro needle, and advanced the micro Glidewire, and confirmed my position in iliac artery with fluoroscopy. I then attempted to advance the micro-sheath catheter over the wire; however, there was some tortuosity at the femoral head. I made attempts to use the dilator of the 4-Iranian micro-sheath catheter and then the sheath itself, but to no avail. I then attempted to access lower in the femoral head, so I removed the micro-sheath catheter and the wire and held manual pressure over the right common femoral artery. I then used ultrasound, and again accessed the right common femoral artery in a more inferior position. However, the same issue occurred, in terms of mean some tortuosity at the femoral head. Even using a dilator to create the tract, I was unable to advance the 4-Iranian micro-sheath catheter. In my opinion, I felt that the micro Glidewire was just not stiff enough to allow for the tortuosity. I again pulled my micro-sheath catheter and wire and held additional manual pressure over the femoral head. I then used a large single puncture needle for access, rather than a micro needle. I accessed the common femoral artery above the bifurcation with ultrasound guidance. I had obtained pulsatile flow and then advanced a starter wire up into the aorta, confirmed on fluoroscopy. Over this starter wire, I was easily able to advance a 4-Iranian sheath. It was flushed and aspirated easily. I then advanced the Omni Flush catheter up into the aorta. Using CO2 angiography, because of the patient's creatinine of 1.5, GFR less than 60, and some concern from his consultant technology about contrast-induced nephropathy. I obtained initial aortogram. This demonstrated there was no significant aortic disease. The left renal artery appeared patent, the right renal artery appeared more diminutive than the left. There is mild narrowing of the right common iliac and external iliac artery; however, there was no significant disease that was seen. The left common iliac artery appeared patent; however, I did not see any flow of the left external iliac artery beyond the iliac bifurcation. I then brought my pigtail catheter lower down to the aortic bifurcation and performed another hand injection with CO2. I did a right angled oblique view, which again confirmed a left external iliac artery occlusion, with distal reconstitution of the left common femoral artery. At this point, I also want to evaluate his left lower extremity vasculature. I was unable to do so with CO2, because of his left external iliac artery occlusion. As a result, I contacted the consultant technology, who said it was okay to give him a little bit of contrast. I did 4 mL/second for 40 mL total bolus jaclyn using 50:50 mixture contrast. This demonstrated again the left external iliac artery occlusion, with common femoral artery reconstitution. The superficial femoral artery appeared to occlude at the proximal portion. Beyond this, no significant other flow was noted. No flow from the midthigh down; however, was likely due to poor timing of the bolus jaclyn, and not indicative of a lack of flow. At this point, my decision was the patient will likely need a [id number] femoral-femoral bypass, and an additional on-table left lower extremity angiogram to assess for his distal vasculature. My suspicion is that he will likely need a fem below-knee popliteal or even fem tibial bypass. I deployed a 5-Iranian Mynx device for closure and additional manual pressure was held over the right common femoral artery Unit #: [id number] #: [id number] Patient: JUNIOR VILLARREAL for 5 minutes to achieve adequate hemostasis. At the end of the case, all counts were correct and I was present for entire duration of procedure. ESTIMATED BLOOD LOSS 20 mL. FINDINGS 1. Normal aorta, no significant stenosis or occlusion of the right common iliac artery, external iliac artery. 2. No significant occlusion of the left common iliac artery, but occlusion of the left external iliac artery, with distal common femoral reconstitution. 3. Proximal left superficial femoral artery occlusion. SPECIMENS None. COMPLICATIONS None. TECHNIQUE Contrast used was 25 mL, fluoro was 4.4 minutes, sedation time was 35 minutes, lidocaine used was 5 mL. Dictated by... Judy Yusuf TD: 08/26/2016 05:49 JOB #: [id number] OPERATIVE REPORT Page 1 of 1 X X PROCEDURE OPERATIVE NOTE
--- NOTE | ~2016-08-22 | US89 ---
[facility] A Service of [facility] & [facility] RADIOLOGY TEXT RESULTS PATIENT: JUNIOR VILLARREAL LOCATION: [facility] 335-01 : 41 UNIT #: [id number] AGE: [address]: Damien Herrmann MD SEX: M ORDER DR: [id number] [facility] [address]. [place], [place] [address] [id number] I MR#: [id number] #: [id number] NAME: JUNIOR VILLARREAL : 1940 SEX: M STUDY DATE/TIME: 08/22/2016 19:00 UNIT: [address] ROOM: [facility] STUDY DESCRIPTION: US Lower Ext Arterial Exam Attending Physician: Stephenie Smith M.D. Ordering Physician: Seun Perez D.O. MEDICAL IMAGING REPORT This report is preliminary unless electronic signature is present EXAM Ankle-brachial index bilaterally. HISTORY Peripheral vascular disease, claudication with ulcers at the ankles and feet for the past week. TECHNIQUE Ankle-brachial indices were measured bilaterally. FINDINGS On the right side the dorsalis pedis index is 0.55 as is the posterior tibial index with a toe brachial index of 0.46. On the left side the posterior tibial index is 0.32 with a dorsalis pedis index of 0.35 and a toe brachial index of 0.14. Waveform tracings are monophasic and dampened bilaterally particularly on the left. IMPRESSION Severe occlusive disease above the ankle on the left with an ankle-brachial index of 0.35 and a toe brachial index of 0.14. Moderately severe occlusive disease above the ankle on the right with an ankle-brachial index of 0.55 and a toe brachial index of 0.46. STAT * RESULT Dictated by... Kalen Lin M.D. THIS IS AN ELECTRONICALLY VERIFIED REPORT Kalen Lin M.D. at 08/23/2016 6:20 [address] [facility] [facility] A Service of [facility] & [facility] RADIOLOGY TEXT RESULTS PATIENT: JUNIOR VILLARREAL LOCATION: [facility] 335-01 : 41 UNIT #: [id number] AGE: [address]: Damien Herrmann MD SEX: M ORDER DR: ANTONIETA/shahida TD: 08/22/2016 20:02 JOB #: [id number] MEDICAL IMAGING REPORT Page 1 of 1 COPY
--- NOTE | ~2016-08-22 | HP ---
Unit #: [id number] #: [id number] Patient: JUNIOR VILLARREAL [id number] [address] [address] [id number] MR#: [id number] NAME: JUNIOR VILLARREAL ROOM: Age: 76 Sex: M Admission Date: 08/22/2016 : 1940 Attending Physician: Seun Perez D.O. HISTORY AND PHYSICAL CHIEF COMPLAINT Ischemic left leg, acute kidney injury, hyperkalemia. HISTORY OF PRESENT ILLNESS This pleasant 76-year-old male with ischemic cardiomyopathy, status post AICD placement, with atrial fibrillation, hypertension, and AODM, is admitted for ischemic left leg. The patient, one and a half weeks ago, developed pain and discoloration of his left leg, and stubbed the fifth toe of his left foot. He has been experiencing increasing fatigue and today either fell or passed out, I am not sure. He was ultimately brought to this emergency department where he has a discolored left foot. I am unable to palpate pedal pulses. The left toe looks to be gangrenous. ABIs were performed showing severe occlusive disease on the left with an RENE of 0.35 and moderate to severe occlusive disease on the right with an RENE of 0.55. Labs show acute kidney injury. Patient denies difficulty voiding. He states he has been eating and drinking okay. In the ER, patient was treated with Zosyn and vancomycin and currently is receiving IV fluids. A call was also made to a vascular surgeon who will be seeing the patient in the morning. PAST MEDICAL HISTORY 1. Ischemic cardiomyopathy. Last ejection fraction was 10% to 15% last year with mild to moderate MR and mild TR. Patient is status post AICD placement. In 2011, the patient was noted to have an atrial appendage clot. He was anticoagulated. He has a history of atrial fibrillation/flutter. 2. Hypertension. 3. Hyperlipidemia. 4. Adult-onset diabetes mellitus. 5. Cerebrovascular accident x2. ALLERGIES No known drug allergies. HOME MEDICATIONS 1. Aspirin 81 mg daily. 2. Coreg 3.125 mg b.i.d. 3. Lasix 40 mg b.i.d. 4. Glucotrol 10 mg b.i.d. 5. Januvia 50 mg daily. 6. Prinivil 20 mg b.i.d. Unit #: [id number] #: [id number] Patient: JUNIOR VILLARREAL 7. Glucophage 850 mg t.i.d. 8. Potassium 20 mEq daily. 9. Aldactone 12.5 mg daily. 10. Coumadin 7.5 mg daily. FAMILY HISTORY Coronary artery disease. SOCIAL HISTORY The patient lives with his and extended family. He has a 100 pack-year smoking history but stopped smoking. He no longer drinks alcohol although drank heavily in the past. REVIEW OF SYSTEMS Notable for discolored, painful left foot, cardiomyopathy, atrial fibrillation, hypertension, AODM, and previous stroke. All other systems were reviewed and are otherwise negative. PHYSICAL EXAMINATION GENERAL: A pleasant, 76-year-old male currently in no acute distress. VITAL SIGNS: Temperature 97.4, pulse 100, respirations 16, blood pressure 129/74, and O2 saturation is 100% on room air. HEENT: Eyes PERRLA. Extraocular muscles are intact. Pharynx is benign. Poor dentition. NECK: Supple without adenopathy or thyromegaly. CHEST: Clear. CARDIAC: Irregular irregular S1 and S2. ABDOMEN: Bowel sounds are present. No hepatosplenomegaly, tenderness, or masses. EXTREMITIES: Notable for erythema of the left foot. Unable to palpate pedal pulses on the left and there may be a faint pedal pulse on the right. There are gangrenous changes of the left fifth toe and duskiness of the left foot. NEUROLOGIC: Patient is awake and alert. He is oriented. Cranial nerves are intact. He has mild right-sided weakness. DIAGNOSTIC STUDIES ADMISSION LABORATORY: Hematocrit is 36.7 with normal white count and platelet count. INR 1.3 and PTT is 34.2. SMA-12: Glucose 143, BUN 60, creatinine 2.5, up from a BUN of 19 and creatinine of 1.1 last year, potassium 5.8, and CO2 of 21. Troponin 0.1. IMAGING: X-ray of the left foot negative. RENE shows severe occlusive disease on the left 0.35 and right 0.55 consistent with moderate to severe peripheral vascular disease. CARDIOLOGY: EKG shows ventricular paced rhythm, rate 38, and underlying atrial fibrillation. ASSESSMENT 1. Ischemic left leg plus/minus cellulitis. 2. Acute kidney injury with hyperkalemia. 3. Ischemic cardiomyopathy, ejection fraction 10% to 15%, status post automatic implantable cardioverter-defibrillator placement. 4. Adult-onset diabetes mellitus. 5. Hypertension. 6. Atrial fibrillation, anticoagulated, with a subtherapeutic INR. 7. Prior cerebrovascular accident. Unit #: [id number] #: [id number] Patient: JUNIOR VILLARREAL PLANS 1. IV fluids with bicarbonate. One dose of Kayexalate. Will check a urinalysis, postvoid bladder scan, and renal ultrasound. Will likely have Nephrology see in the morning as well. 2. Vascular was consulted, and they will see the patient in the morning. 3. Will consult the patient's cadastral surveyor. 4. Hold diuretics, BATSHEVA inhibitor tonight pending repeat labs in the morning. 5. Sliding scale insulin. 1. Dictated by Stephenie Smith M.D. AML/david TD: 08/22/2016 22:15 JOB #: [id number] CC: Rocio Kunz M.D. HISTORY AND PHYSICAL Page 1 of 1 X Stephenie Smith MD HISTORY AND PHYSICAL
[~2016-08-22 17:42] MED LIST: ALDACTONE PO; ASPIRIN81 M2 PO; COREG12.5 MG PO; COREG3.125 MG PO; COUMADIN7.5 MG; COUMADIN7.5 MG PO; GLIPIZIDE10 MG PO; K-DUR20 ME2 PO; LASIX PO; LOVENOX SUBQ; NORVASC10 MG PO; ZESTRIL5 MG PO
[2016-08-22] MEDS ORDERED: ASPIRIN81 M2 PO (17:48)
[2016-08-22] MEDS ORDERED: GLUCOTROL10 MG PO (17:48)
[2016-08-22] MEDS ORDERED: FUROSEMIDE40 MG PO (17:48)
[2016-08-22] MEDS ORDERED: COREG3.125 MG PO (17:48)
[2016-08-22] MEDS ORDERED: METFORMIN PO (17:49)
[2016-08-22] MEDS ORDERED: JANUVIA50 MG PO (17:49)
[2016-08-22] MEDS ORDERED: PRINIVIL20 M1 PO (17:49)
[2016-08-22] MEDS ORDERED: POTASSIUM CHLO20 ME1 PO (17:50)
[2016-08-22] MEDS ORDERED: KCL PO (17:50)
[2016-08-22] MEDS ORDERED: ALDACTONE25 MG PO (17:51)
[2016-08-22] MEDS ORDERED: COUMADIN PO (17:52)
[2016-08-22 19:28] LABS: BASOPHIL% 0.2 % (0-2.5); EOSINOPHIL# 0.1 X10e3 (0-0.7); EOSINOPHIL% 0.5 % (0.0-7.0); HEMATOCRIT 36.7 % (38.0-50.0); HEMOGLOBIN 11.4 gm/dL (13.0-16.0); LYMPHOCYTE# 1.4 X10e3 (1.0-3.5); LYMPHOCYTE% 13.8 % (17.0-45.0); MEAN CELL VOLUME 82.5 FL (83-96); MEAN CORPUSCULAR HEMOGLOBIN 25.6 PG (28-34); MEAN PLATELET VOLUME 9.9 FL (6.5-11.5); MONOCYTE# 1.2 X10e3 (0-1.0); MONOCYTE% 12.1 % (3.0-12.0); NEUTROPHIL# 7.3 X10e3 (1.5-7.1); NEUTROPHIL% 73.4 % (40-75); PLATELET COUNT 216 X10e3 (140-420); RED BLOOD COUNT 4.44 X10e (3.90-5.60); RED CELL DISTRIBUTION WIDTH 14.9 % (11.0-15.5)
[2016-08-22 19:32] LABS: DIFF IND NO
[2016-08-22 19:34] LABS: INR 1.3; PARTIAL THROMBOPLASTIN TIME 34.2 SECONDS (23.5-31.3); PROTHROMBIN TIME (PATIENT) 13.5 SECONDS (9.6-11.5)
[2016-08-22 19:50] LABS: ALBUMIN SERUM 4.1 g/dL (3.5-5.0); BILIRUBIN, DIRECT 0.1 mg/dL (0.0-0.2); BILIRUBIN,TOTAL 1.1 mg/dL (0.2-2.0); CREATININE SERUM 2.5 mg/dL (0.6-1.4); GLOM FILT RATE Estimated 28.1 mL/min (>60); PROTEIN TOTAL SERUM 8.1 g/dL (6.0-8.3)
[2016-08-22 19:51] LABS: POTASSIUM 5.8 mmol/L (3.5-5.1)
[2016-08-22 20:08] LABS: POC - CKMB 7.1 ng/mL (0.0-7.9); POC - TROPONIN 0.1 ng/mL (<=0.05)
[2016-08-22 22:30] LABS: URINE SOURCE CLEAN CATCH
[2016-08-22 22:44] LABS: URINE APPEARANCE CLEAR; URINE BILIRUBIN NEG (NEG); URINE BLOOD NEG (NEG); URINE COLOR YELLOW; URINE GLUCOSE NEG (NEG); URINE KETONE TRACE (NEG); URINE LEUKOCYTE ESTERASE NEG (NEG); URINE NITRATE NEG (NEG); URINE PH 5.5 (5-8); URINE PROTEIN 1+ (NEG); URINE SPECIFIC GRAVITY 1.021 (1.003-1.035)
[2016-08-22 22:47] LABS: URBCS1 AUWI 0-2 /[HPF] (0-2); URINE BACTERIA AUWI NEG (NEGATIVE); URINE SQUAMOUS EPITHELIAL CELL NONE SEEN /[HPF]; UWBCS1 AUWI 0-2 (0-5)
[2016-08-22 22:52] LABS: CULTURE INDICATED? NO
[2016-08-23 02:46] LABS: BASOPHIL% 0.5 % (0-2.5); EOSINOPHIL# 0.1 X10e3 (0-0.7); EOSINOPHIL% 1.2 % (0.0-7.0); HEMATOCRIT 33.7 % (38.0-50.0); HEMOGLOBIN 10.5 gm/dL (13.0-16.0); LYMPHOCYTE# 1.4 X10e3 (1.0-3.5); LYMPHOCYTE% 16.6 % (17.0-45.0); MEAN CELL VOLUME 81.5 FL (83-96); MEAN CORPUSCULAR HEMOGLOBIN 25.5 PG (28-34); MEAN CORPUSCULAR HGB CONC 31.3 g/dL (30-36); MEAN PLATELET VOLUME 9.2 FL (6.5-11.5); MONOCYTE# 0.9 X10e3 (0-1.0); MONOCYTE% 11.1 % (3.0-12.0); NEUTROPHIL# 5.9 X10e3 (1.5-7.1); NEUTROPHIL% 70.6 % (40-75); PLATELET COUNT 195 X10e3 (140-420); RED BLOOD COUNT 4.13 X10e (3.90-5.60); RED CELL DISTRIBUTION WIDTH 15.2 % (11.0-15.5); WHITE BLOOD COUNT 8.3 X10e3 (4.0-10.5)
[2016-08-23 02:50] LABS: DIFF IND NO
[2016-08-23 03:06] LABS: INR 1.3; PARTIAL THROMBOPLASTIN TIME 28.4 SECONDS (23.5-31.3); PROTHROMBIN TIME (PATIENT) 13.3 SECONDS (9.6-11.5)
[2016-08-23 03:18] LABS: BUN/CREATININE RATIO 24.76; CALCIUM SERUM 9.1 mg/dL (8.4-10.2); CREATININE SERUM 2.1 mg/dL (0.6-1.4); GLOM FILT RATE Estimated 34.6 mL/min (>60); POTASSIUM 4.7 mmol/L (3.5-5.1)
[2016-08-23 03:38] LABS: %MB 3.3 % (0.0-4.0); MB 3.9 ng/ml
[2016-08-23 10:40] LABS: CHOLESTEROL 149 mg/dL (0-200); HDL CHOLESTEROL 30 mg/dL (29-75); LDL CHOLESTEROL 97 mg/dL (-130); LDL/HDL RATIO 3 RATIO (0-4); TRIGLYCERIDES 108 mg/dL (10-160)
[2016-08-23 17:26] LABS: CREATININE,RANDOM URINE 99 mg/dL; SODIUM URINE RANDOM 82 mmol/L; TOTAL PROTEIN,RANDOM URINE 28 mg/dl (<10)
[2016-08-24 07:32] LABS: HEMATOCRIT 31.7 % (38.0-50.0); HEMOGLOBIN 9.9 gm/dL (13.0-16.0); MEAN CELL VOLUME 82.4 FL (83-96); MEAN CORPUSCULAR HEMOGLOBIN 25.6 PG (28-34); MEAN CORPUSCULAR HGB CONC 31.1 g/dL (30-36); MEAN PLATELET VOLUME 9.9 FL (6.5-11.5); RED BLOOD COUNT 3.84 X10e (3.90-5.60); RED CELL DISTRIBUTION WIDTH 14.5 % (11.0-15.5); WHITE BLOOD COUNT 7.4 X10e3 (4.0-10.5)
[2016-08-24 07:52] LABS: INR 1.2; PROTHROMBIN TIME (PATIENT) 12.6 SECONDS (9.6-11.5)
[2016-08-24 08:17] LABS: ALBUMIN SERUM 3.2 g/dL (3.5-5.0); BUN/CREATININE RATIO 18.75; CALCIUM SERUM 8.8 mg/dL (8.4-10.2); CREATININE SERUM 1.6 mg/dL (0.6-1.4); GLOM FILT RATE Estimated 48.2 mL/min (>60); MAGNESIUM 1.6 mg/dL (1.6-3.0); POTASSIUM 4.2 mmol/L (3.5-5.1); PROTEIN TOTAL SERUM 6.4 g/dL (6.0-8.3)
[2016-08-25 02:29] LABS: BASOPHIL# 0.1 X10e3 (0-0.3); BASOPHIL% 0.9 % (0-2.5); EOSINOPHIL# 0.1 X10e3 (0-0.7); EOSINOPHIL% 1.2 % (0.0-7.0); HEMATOCRIT 32.1 % (38.0-50.0); LYMPHOCYTE# 1.1 X10e3 (1.0-3.5); LYMPHOCYTE% 18.3 % (17.0-45.0); MEAN CELL VOLUME 81.3 FL (83-96); MEAN CORPUSCULAR HEMOGLOBIN 25.4 PG (28-34); MEAN CORPUSCULAR HGB CONC 31.3 g/dL (30-36); MEAN PLATELET VOLUME 8.9 FL (6.5-11.5); MONOCYTE# 0.7 X10e3 (0-1.0); MONOCYTE% 11.7 % (3.0-12.0); NEUTROPHIL# 4.2 X10e3 (1.5-7.1); NEUTROPHIL% 67.9 % (40-75); PLATELET COUNT 185 X10e3 (140-420); RED BLOOD COUNT 3.95 X10e (3.90-5.60); RED CELL DISTRIBUTION WIDTH 14.9 % (11.0-15.5); WHITE BLOOD COUNT 6.2 X10e3 (4.0-10.5)
[2016-08-25 02:30] LABS: DIFF IND NO
[2016-08-25 02:40] LABS: INR 1.1; PROTHROMBIN TIME (PATIENT) 11.4 SECONDS (9.6-11.5)
[2016-08-25 03:53] LABS: CALCIUM SERUM 8.5 mg/dL (8.4-10.2); CREATININE SERUM 1.5 mg/dL (0.6-1.4); GLOM FILT RATE Estimated 52.1 mL/min (>60); POTASSIUM 4.5 mmol/L (3.5-5.1)
[2016-08-26 09:47] LABS: HEMOGLOBIN 9.7 gm/dL (13.0-16.0); MEAN CELL VOLUME 81.9 FL (83-96); MEAN CORPUSCULAR HEMOGLOBIN 25.6 PG (28-34); MEAN CORPUSCULAR HGB CONC 31.2 g/dL (30-36); MEAN PLATELET VOLUME 10.1 FL (6.5-11.5); RED BLOOD COUNT 3.78 X10e (3.90-5.60); RED CELL DISTRIBUTION WIDTH 15.1 % (11.0-15.5); WHITE BLOOD COUNT 8.4 X10e3 (4.0-10.5)
[2016-08-26 09:54] LABS: INR 1.1; PROTHROMBIN TIME (PATIENT) 11.5 SECONDS (9.6-11.5)
[2016-08-26 10:03] LABS: BUN/CREATININE RATIO 11.42; CALCIUM SERUM 8.8 mg/dL (8.4-10.2); CREATININE SERUM 1.4 mg/dL (0.6-1.4); GLOM FILT RATE Estimated 56.6 mL/min (>60); MAGNESIUM 1.8 mg/dL (1.6-3.0); PHOSPHOROUS 2.2 mg/dL (2.5-4.6)
[2016-08-27 05:48] LABS: HEMATOCRIT 29.8 % (38.0-50.0); HEMOGLOBIN 9.4 gm/dL (13.0-16.0); MEAN CELL VOLUME 81.7 FL (83-96); MEAN CORPUSCULAR HEMOGLOBIN 25.7 PG (28-34); MEAN CORPUSCULAR HGB CONC 31.5 g/dL (30-36); MEAN PLATELET VOLUME 9.5 FL (6.5-11.5); RED BLOOD COUNT 3.65 X10e (3.90-5.60); RED CELL DISTRIBUTION WIDTH 14.9 % (11.0-15.5); WHITE BLOOD COUNT 8.9 X10e3 (4.0-10.5)
[2016-08-27 06:41] LABS: CALCIUM SERUM 8.7 mg/dL (8.4-10.2); CREATININE SERUM 1.4 mg/dL (0.6-1.4); GLOM FILT RATE Estimated 56.6 mL/min (>60); MAGNESIUM 2.1 mg/dL (1.6-3.0); PHOSPHOROUS 2.5 mg/dL (2.5-4.6); POTASSIUM 4.3 mmol/L (3.5-5.1)
[2016-08-28 07:38] LABS: HEMATOCRIT 28.4 % (38.0-50.0); HEMOGLOBIN 8.9 gm/dL (13.0-16.0); MEAN CELL VOLUME 82.3 FL (83-96); MEAN CORPUSCULAR HEMOGLOBIN 25.9 PG (28-34); MEAN CORPUSCULAR HGB CONC 31.5 g/dL (30-36); MEAN PLATELET VOLUME 9.8 FL (6.5-11.5); RED BLOOD COUNT 3.45 X10e (3.90-5.60); RED CELL DISTRIBUTION WIDTH 14.7 % (11.0-15.5)
[2016-08-28 08:13] LABS: CALCIUM SERUM 8.6 mg/dL (8.4-10.2); CREATININE SERUM 1.2 mg/dL (0.6-1.4); GLOM FILT RATE Estimated 68.2 mL/min (>60); MAGNESIUM 1.8 mg/dL (1.6-3.0); PHOSPHOROUS 3.1 mg/dL (2.5-4.6); POTASSIUM 4.2 mmol/L (3.5-5.1)
== END 2016-08-28 16:17 | DRG 300 ==
LOC: CED 17:42 → CEDOF 21:50 → C3A PCU 21:50 → CED 22:04 → C3A PCU 22:04 → CEDOF 22:04 → C3A PCU 23:53 → CEDOF 23:53 → C3A PCU 08-23 07:22
PROVIDERS: Emergency Medicine; Family Medicine; Internal Medicine; Internal Medicine Nephrology
PROC: B410YZZ Fluoroscopy of Abdominal Aorta using Other Contrast (ICD-10-PCS; principal; 2016-08-25)
PROC: B41GYZZ Fluoroscopy of Left Lower Extremity Arteries using Other Contrast (ICD-10-PCS; 2016-08-25)
DX: I70.245 Atherosclerosis of native arteries of left leg with ulceration of other part of foot (principal); N17.9 Acute kidney failure, unspecified; E11.8 Type 2 diabetes mellitus with unspecified complications; I48.92 Unspecified atrial flutter; I11.0 Hypertensive heart disease with heart failure; I50.22 Chronic systolic (congestive) heart failure; I27.2 Other secondary pulmonary hypertension; L03.116 Cellulitis of left lower limb; L97.529 Non-pressure chronic ulcer of other part of left foot with unspecified severity; E87.5 Hyperkalemia; I99.8 Other disorder of circulatory system; I25.5 Ischemic cardiomyopathy; E78.5 Hyperlipidemia, unspecified; Z86.73 Personal history of transient ischemic attack (TIA), and cerebral infarction without residual deficits; Z79.84 Long term (current) use of oral hypoglycemic drugs; Z79.01 Long term (current) use of anticoagulants; Z95.810 Presence of automatic (implantable) cardiac defibrillator; I25.10 Atherosclerotic heart disease of native coronary artery without angina pectoris; Z87.891 Personal history of nicotine dependence; Z79.82 Long term (current) use of aspirin; I08.3 Combined rheumatic disorders of mitral, aortic and tricuspid valves; W19.XXXA Unspecified fall, initial encounter; R26.9 Unspecified abnormalities of gait and mobility; I48.2 Chronic atrial fibrillation
CPT/HCPCS: 71010; 73630; 75625; 75710; 76770; 80048; 80053; 80061; 80076; 80202; 81003; 82550; 82553; 82570; 82947; 83036; 83605; 83735; 84100; 84156; 84300; 84484; 85025; 85027; 85610; 85652; 85730; 86140; 86334; 86850; 86900; 86901; 86923; 87040; 87086; 89190; 93005; 93923; 99285; C1725; C1760; C1894; G0365; J1644; J1650; J1815; J2250; J2543; J3010; J3370; J3475; Q9967